=== PATIENT | female | born 1950 | race Caucasian/White ===

== ENCOUNTER 2022-11-09 10:55 | Inpatient (IN) | payer MEDICARE, OTHER ==
[~2022-11-09] VITALS: Ht 177.8 cm; Wt 89.1 kg
[2022-11-09] MEDS ORDERED: LETR2.5T PO (15:37)
[2022-11-09] MEDS ORDERED: ASPI-1169 PO (15:37)
[2022-11-09] MEDS ORDERED: LORA-258 PO (15:37)
[2022-11-09] MEDS ORDERED: ACET-2605 PO (15:37)
[2022-11-09] MEDS ORDERED: MAGNESIUM HYDROXIDE 30 ML UDC PO PRN (16:30)
[2022-11-09] MEDS ORDERED: BLOOD SUGAR DIAGNOSTIC 1 EACH STRIP IN ONE (16:30)
[2022-11-09] MEDS ORDERED: MAG HYDROX/AL HYDROX/SIMETH 30 ML UDC PO PRN (16:30)
[2022-11-09] MEDS ORDERED: ACETAMINOPHEN 325 MG TABLET PO PRN (16:30)
[2022-11-09 20:00] VITALS: BP 145/68; TEMP 97.9; O2SAT 99
[2022-11-10 08:00] VITALS: BP 125/69; TEMP 97.9; O2SAT 96
[2022-11-10] MEDS: LETROZOLE 2.5 MG TABLET PO SCH (09:11)
[2022-11-10] MEDS: ARIPIPRAZOLE 5 MG TABLET PO SCH (09:14)
[2022-11-10] MEDS: ASPIRIN 81 MG TAB.CHEW PO SCH (09:14)
[2022-11-10 09:21] LABS: ALANINE AMINOTRANSFERASE 15 U/L (12-78); ALBUMIN 3.3 g/dL (3.4-5.0); ALKALINE PHOSPHATASE 78 U/L (46-116); ASPARTATE AMINOTRANSFERASE 20 U/L (15-37); BILIRUBIN,TOTAL 0.5 mg/dL (0.2-1.0); CALCIUM, SERUM 9.4 mg/dL (8.5-10.1); CARBON DIOXIDE 22 mmol/L (21-32); CHLORIDE 106 mmol/L (98-107); CREATININE 0.7 mg/dL (0.6-1.3); GLUCOSE 103 mg/dL (74-106); POTASSIUM 3.8 mmol/L (3.5-5.1); SODIUM SERUM 137 mmol/L (136-145); TOTAL PROTEIN, SERUM 7.5 g/dL (6.4-8.2); UREA NITROGEN, BLOOD 18 mg/dL (7-18)
[2022-11-10 16:00] VITALS: BP 118/63; TEMP 98.2; O2SAT 98
[2022-11-10 16:43] LABS: CREATININE 0.7 mg/dL (0.6-1.3)
[2022-11-10 20:00] VITALS: BP 132/71; TEMP 97.8; O2SAT 97
[2022-11-10] MEDS: TEMAZEPAM 7.5 MG CAPSULE PO PRN (22:08)
[2022-11-11 08:00] VITALS: BP 134/77; TEMP 97.8; O2SAT 95
[2022-11-11] MEDS: ARIPIPRAZOLE 5 MG TABLET PO SCH (08:22)
[2022-11-11] MEDS: ASPIRIN 81 MG TAB.CHEW PO SCH (08:22)
[2022-11-11] MEDS: LETROZOLE 2.5 MG TABLET PO SCH (08:23)
[2022-11-11 16:00] VITALS: BP 127/77; TEMP 98; O2SAT 100
[2022-11-11 20:00] VITALS: BP 130/70; TEMP 98.1; O2SAT 98
[2022-11-11] MEDS: TEMAZEPAM 7.5 MG CAPSULE PO PRN (23:34)
[2022-11-12 08:00] VITALS: BP 118/81; TEMP 97.4; O2SAT 97
[2022-11-12] MEDS: LETROZOLE 2.5 MG TABLET PO SCH (08:10)
[2022-11-12] MEDS: ASPIRIN 81 MG TAB.CHEW PO SCH (08:10)
[2022-11-12] MEDS: ARIPIPRAZOLE 5 MG TABLET PO SCH (08:10)
[2022-11-12 16:00] VITALS: BP 121/86; TEMP 98.9; O2SAT 98
[2022-11-12 20:00] VITALS: BP 124/79; TEMP 97.6; O2SAT 96
[2022-11-13 08:00] VITALS: BP 122/75; TEMP 99.1; O2SAT 98
[2022-11-13] MEDS: ARIPIPRAZOLE 5 MG TABLET PO SCH (08:48)
[2022-11-13] MEDS: ASPIRIN 81 MG TAB.CHEW PO SCH (08:48)
[2022-11-13] MEDS: LETROZOLE 2.5 MG TABLET PO SCH (09:03)
[2022-11-13 16:00] VITALS: BP 137/72; TEMP 97.7; O2SAT 99
[2022-11-13 20:36] VITALS: BP 143/86; TEMP 97.8; O2SAT 97
[2022-11-14 08:00] VITALS: BP 122/77; TEMP 97.9; O2SAT 98
[2022-11-14] MEDS: ARIPIPRAZOLE 5 MG TABLET PO SCH (08:03)
[2022-11-14] MEDS: ASPIRIN 81 MG TAB.CHEW PO SCH (08:04)
[2022-11-14] MEDS: LETROZOLE 2.5 MG TABLET PO SCH (08:53)
[2022-11-14 16:00] VITALS: BP 136/73; TEMP 98; O2SAT 100
[2022-11-14 20:21] VITALS: BP 144/80; TEMP 97.9; O2SAT 100
[2022-11-15] MEDS: ACETAMINOPHEN ES 500 MG TABLET PO PRN ×2 (05:33→09:32)
[2022-11-15 08:00] VITALS: BP 130/64; TEMP 97.9; O2SAT 97
[2022-11-15] MEDS: ASPIRIN 81 MG TAB.CHEW PO SCH (09:32)
[2022-11-15] MEDS: ARIPIPRAZOLE 5 MG TABLET PO SCH (09:32)
[2022-11-15] MEDS: LETROZOLE 2.5 MG TABLET PO SCH (11:25)
[2022-11-15 16:00] VITALS: BP 140/79; TEMP 98.1; O2SAT 98
[2022-11-15 16:03] VITALS: BP 140/79; TEMP 98; O2SAT 97
[2022-11-15] MEDS: clonazePAM 0.5 MG TABLET PO PRN (18:47)
[2022-11-15 20:25] VITALS: BP 143/72; TEMP 97.5; O2SAT 99
[2022-11-16 08:00] VITALS: BP 117/59; TEMP 98.6; O2SAT 98
[2022-11-16] MEDS: ARIPIPRAZOLE 5 MG TABLET PO SCH (10:35)
[2022-11-16] MEDS: ASPIRIN 81 MG TAB.CHEW PO SCH (10:36)
[2022-11-16] MEDS: LETROZOLE 2.5 MG TABLET PO SCH (10:38)
[2022-11-16] MEDS ORDERED: SILVER NITRATE APPLICATOR 1 EA BOX TP ONE (14:00)
[2022-11-16] MEDS ORDERED: LIDOCAINE 1%-EPI 1:100,000 20 ML VIAL TP ONE (14:00)
[2022-11-16 16:00] VITALS: BP 134/70; TEMP 97.7; O2SAT 98
[2022-11-16 20:09] VITALS: BP 11/78; TEMP 97.8; O2SAT 99
[2022-11-17 07:18] LABS: BASOPHILS % (AUTO) 0.5 % (0.0-2.0); EOSINOPHILS # (AUTO) 0.2 K/uL (0.0-0.7); EOSINOPHILS % (AUTO) 3.3 % (0.0-6.0); HEMATOCRIT 34 % (33-45); LYMPHOCYTES # (AUTO) 2.1 K/uL (0.8-4.8); LYMPHOCYTES % (AUTO) 31.2 % (20.0-44.0); MEAN CORPUSCULAR HEMOGLOBIN 27 PG (26.0-33.0); MEAN CORPUSCULAR HGB CONC 33 g/dl (31.0-36.0); MEAN CORPUSCULAR VOLUME 83 fL (82-100); MONOCYTES # (AUTO) 0.8 K/uL (0.1-1.30); MONOCYTES % (AUTO) 12.3 % (2.0-12.0); NEUTROPHILS # (AUTO) 3.5 K/uL (1.8-8.9); NEUTROPHILS % (AUTO) 52.7 % (43.0-81.0); PLATELET COUNT (AUTO) 218 K/uL (150-450); RED BLOOD CELL COUNT(AUTO) 4.04 MIL/uL (4.0-5.2); RED CELL DISTRIBUTION WIDTH 17.5 % (11.5-15.0); WHITE BLOOD COUNT (AUTO) 6.7 K/uL (4.3-11.0)
[2022-11-17 07:30] LABS: CALCIUM, SERUM 8.9 mg/dL (8.5-10.1); CREATININE 0.7 mg/dL (0.6-1.3); POTASSIUM 3.7 mmol/L (3.5-5.1)
[2022-11-17 08:00] VITALS: BP 122/68; TEMP 97.6; O2SAT 98
[2022-11-17] MEDS: LETROZOLE 2.5 MG TABLET PO SCH (08:52)
[2022-11-17] MEDS: ASPIRIN 81 MG TAB.CHEW PO SCH (08:52)
[2022-11-17] MEDS: ARIPIPRAZOLE 5 MG TABLET PO SCH (08:53)
[2022-11-17 09:07] LABS: CANCER AG, 15-3 35.8 U/mL (0.0-25.0)
[2022-11-17] MEDS ORDERED: IOHEXOL-300 100 ML VIAL IV ONE (10:26)
[2022-11-17] MEDS ORDERED: IV NS 0.9% 250 ML IV ONE (10:27)
[2022-11-17 16:00] VITALS: BP 126/61; TEMP 98.1; O2SAT 98
[2022-11-17 20:00] VITALS: BP 132/81; TEMP 98.6; O2SAT 97
[2022-11-18 08:00] VITALS: BP 128/90; TEMP 98.2; O2SAT 98
[2022-11-18] MEDS: LETROZOLE 2.5 MG TABLET PO SCH (08:59)
[2022-11-18] MEDS: ARIPIPRAZOLE 5 MG TABLET PO SCH (09:00)
[2022-11-18] MEDS: ASPIRIN 81 MG TAB.CHEW PO SCH (09:03)
[2022-11-18 16:00] VITALS: BP 133/66; TEMP 98.6; O2SAT 94
[2022-11-18] MEDS: clonazePAM 0.5 MG TABLET PO PRN (20:43)
[2022-11-18 20:53] VITALS: BP 130/69; TEMP 98.6; O2SAT 98
[2022-11-19 08:00] VITALS: BP 121/58; TEMP 97.7; O2SAT 99
[2022-11-19] MEDS: ARIPIPRAZOLE 5 MG TABLET PO SCH (09:02)
[2022-11-19] MEDS: ASPIRIN 81 MG TAB.CHEW PO SCH (09:02)
[2022-11-19] MEDS: LETROZOLE 2.5 MG TABLET PO SCH (09:03)
[2022-11-19 16:00] VITALS: BP 120/54; TEMP 97.6; O2SAT 98
[2022-11-20 06:41] LABS: BASOPHILS % (AUTO) 0.8 % (0.0-2.0); EOSINOPHILS # (AUTO) 0.2 K/uL (0.0-0.7); HEMATOCRIT 35 % (33-45); HEMOGLOBIN 11.7 g/dL (11.5-14.8); LYMPHOCYTES # (AUTO) 1.8 K/uL (0.8-4.8); MEAN CORPUSCULAR HEMOGLOBIN 28 PG (26.0-33.0); MEAN CORPUSCULAR HGB CONC 33 g/dl (31.0-36.0); MEAN CORPUSCULAR VOLUME 83 fL (82-100); MONOCYTES # (AUTO) 0.8 K/uL (0.1-1.30); NEUTROPHILS # (AUTO) 3.1 K/uL (1.8-8.9); NEUTROPHILS % (AUTO) 52.2 % (43.0-81.0); PLATELET COUNT (AUTO) 225 K/uL (150-450); RED BLOOD CELL COUNT(AUTO) 4.26 MIL/uL (4.0-5.2); RED CELL DISTRIBUTION WIDTH 17.2 % (11.5-15.0)
[2022-11-20 07:19] LABS: THYROID STIMULATING HORMONE 2.284 uIU/mL (0.358-3.74)
[2022-11-20 07:36] LABS: ALBUMIN 3.1 g/dL (3.4-5.0); BILIRUBIN,TOTAL 0.6 mg/dL (0.2-1.0); CREATININE 0.8 mg/dL (0.6-1.3); POTASSIUM 3.8 mmol/L (3.5-5.1); TOTAL PROTEIN, SERUM 6.9 g/dL (6.4-8.2)
[2022-11-20 08:11] VITALS: BP 117/59; TEMP 97.8; O2SAT 98
[2022-11-20] MEDS: LETROZOLE 2.5 MG TABLET PO SCH (08:39)
[2022-11-20] MEDS: ASPIRIN 81 MG TAB.CHEW PO SCH (08:40)
[2022-11-20] MEDS: ARIPIPRAZOLE 5 MG TABLET PO SCH (08:40)
[2022-11-20] MEDS: FERROUS SULFATE (325 MG) 325 MG/TAB TABLET PO SCH (12:53)
[2022-11-20 16:01] VITALS: BP 126/64; TEMP 97.8; O2SAT 99
[2022-11-20 20:21] VITALS: BP 128/63; TEMP 97.9; O2SAT 96
[2022-11-21 08:00] VITALS: BP 117/72; TEMP 98.4; O2SAT 98
[2022-11-21] MEDS: ASPIRIN 81 MG TAB.CHEW PO SCH (08:25)
[2022-11-21] MEDS: ARIPIPRAZOLE 5 MG TABLET PO SCH (08:25)
[2022-11-21] MEDS: FERROUS SULFATE (325 MG) 325 MG/TAB TABLET PO SCH (08:25)
[2022-11-21] MEDS: LETROZOLE 2.5 MG TABLET PO SCH (08:26)
[2022-11-21 10:07] LABS: IMMUNOGLOBULIN A, SERUM 200 mg/dL (87-352); IMMUNOGLOBULIN G, SERUM 907 mg/dL (586-1602); IMMUNOGLOBULIN M, SERUM 106 mg/dL (26-217)
[2022-11-21 16:00] VITALS: BP 117/77; TEMP 98.1; O2SAT 97
[2022-11-21 20:22] VITALS: BP 115/61; TEMP 99; O2SAT 96
[2022-11-21 20:25] VITALS: BP 128/70; TEMP 97.7; O2SAT 98
[2022-11-22 02:06] LABS: FOLIC ACID 6.6 ng/mL (>3.0)
[2022-11-22 07:08] LABS: *SPE ALBUMIN 3.1 g/dL (2.9-4.4); *SPE ALPHA-1-GLOBULIN 0.3 g/dL (0.0-0.4); *SPE ALPHA-2-GLOBULIN 0.8 g/dL (0.4-1.0); *SPE M-SPIKE Not Observed g/dL (Not Observed); *SPE PROTEIN TOTAL 6.1 g/dL (6.0-8.5); *SPEGAMMA GLOBULIN 0.9 g/dL (0.4-1.8)
[2022-11-22 08:00] VITALS: BP 136/71; TEMP 98.6; O2SAT 98
[2022-11-22] MEDS: ARIPIPRAZOLE 5 MG TABLET PO SCH (09:21)
[2022-11-22] MEDS: ASPIRIN 81 MG TAB.CHEW PO SCH (09:21)
[2022-11-22] MEDS: FERROUS SULFATE (325 MG) 325 MG/TAB TABLET PO SCH (09:21)
[2022-11-22] MEDS: LETROZOLE 2.5 MG TABLET PO SCH (10:14)
[2022-11-22 12:07] LABS: FREE KAPPA LT CHAINS SERUM 17.1 mg/L (3.3-19.4); FREE LAMBDA LT CHAIN SERUM 10.7 mg/L (5.7-26.3); KAPPA/LAMBDA RATIO SERUM 1.6 (0.26-1.65)
[2022-11-22 16:00] VITALS: BP 100/62; TEMP 97.7; O2SAT 99
[2022-11-22 21:03] VITALS: BP 117/57; TEMP 97.5; O2SAT 97
[2022-11-23 08:00] VITALS: BP 117/59; TEMP 97.9; O2SAT 96
[2022-11-23] MEDS: ARIPIPRAZOLE 5 MG TABLET PO SCH (09:16)
[2022-11-23] MEDS: FERROUS SULFATE (325 MG) 325 MG/TAB TABLET PO SCH (09:17)
[2022-11-23] MEDS: ASPIRIN 81 MG TAB.CHEW PO SCH (09:17)
[2022-11-23] MEDS: LETROZOLE 2.5 MG TABLET PO SCH (09:31)
[2022-11-23 16:00] VITALS: BP 114/55; TEMP 99; O2SAT 96
[2022-11-23 20:13] VITALS: BP 138/57; TEMP 97.9; O2SAT 98
[2022-11-24 08:00] VITALS: BP 119/58; TEMP 98.6; O2SAT 97
[2022-11-24] MEDS: ARIPIPRAZOLE 5 MG TABLET PO SCH (08:31)
[2022-11-24] MEDS: ASPIRIN 81 MG TAB.CHEW PO SCH (08:31)
[2022-11-24] MEDS: FERROUS SULFATE (325 MG) 325 MG/TAB TABLET PO SCH (08:31)
[2022-11-24] MEDS: LETROZOLE 2.5 MG TABLET PO SCH (08:32)
== END 2022-11-24 11:10 | disposition home or self-care (01) | DRG 876 ==
LOC: GPS 14:46
PROVIDERS: ADMIT Nurse Practitioner Psychiatric/Mental Health; ATTEND Internal Medicine
PROC: 0HBU0ZX Excision of Left Breast, Open Approach, Diagnostic (ICD-10-PCS; principal; 2022-11-17)
DX: F20.9 Schizophrenia, unspecified (principal); E44.1 Mild protein-calorie malnutrition; C77.9 Secondary and unspecified malignant neoplasm of lymph node, unspecified; F41.9 Anxiety disorder, unspecified; Z73.6 Limitation of activities due to disability; Z79.82 Long term (current) use of aspirin; Z79.899 Other long term (current) drug therapy; Z88.5 Allergy status to narcotic agent; M06.9 Rheumatoid arthritis, unspecified; Z86.73 Personal history of transient ischemic attack (TIA), and cerebral infarction without residual deficits; M79.7 Fibromyalgia; Z85.3 Personal history of malignant neoplasm of breast; E88.09 Other disorders of plasma-protein metabolism, not elsewhere classified; Z81.8 Family history of other mental and behavioral disorders; Z82.3 Family history of stroke; Z82.49 Family history of ischemic heart disease and other diseases of the circulatory system; Z91.148 Patient's other noncompliance with medication regimen for other reason; C50.912 Malignant neoplasm of unspecified site of left female breast; F29 Unspecified psychosis not due to a substance or known physiological condition; Z90.12 Acquired absence of left breast and nipple; D50.9 Iron deficiency anemia, unspecified
CPT/HCPCS: 36415; 71260-TC; 80048-TC; 80053-TC; 80061-TC; 82378; 82565-TC; 82607-TC; 82728-TC; 82784; 83540-TC; 83921; 84155; 84165; 84443-TC; 85025-TC; 86300; 86334; 88305-TC; 88341; 88342; 88360; 93970-TC; A6253; A6403; J3490; J7050; Q9967